=== PATIENT | male | born 1955 | race Caucasian/White ===

== ENCOUNTER 2016-12-08 07:46 | Day surgery (SDC) | payer OTHER ==
[2016-12-08] VITALS (8 sets, daily range): BP systolic 99–134; BP diastolic 55–63; PULSE 80–100; RESP 10–33; Ht 182.9 cm; Wt 92.0 kg
[~2016-12-08] VITALS: Ht 182.9 cm; Wt 92.0 kg
[~2016-12-08 07:46] MED LIST: ATOR20TA38 PO; BENA20TA48 PO; SERT-165 PO; SITA1TAB3 PO
[2016-12-08] MEDS ORDERED: LINA1TAB PO (08:20)
[2016-12-08] MEDS ORDERED: CANA300T PO (08:21)
[2016-12-08 08:44] LABS: BASOPHILS % 0.5 % (0.0-2.0); EOSINOPHILS # 0.2 10^3/ul (0.0-0.5); EOSINOPHILS % 1.6 % (0.0-7.0); HEMATOCRIT 46.2 % (42.0-52.0); HEMOGLOBIN 15.8 g/dl (14.0-18.0); LYMPHOCYTES # 1.2 10^3/ul (0.8-2.9); LYMPHOCYTES % 12.1 % (15.0-51.0); MEAN CORPUSCULAR HEMOGLOBIN 30.4 pg (29.0-33.0); MEAN CORPUSCULAR HGB CONC 34.2 g/dl (32.0-37.0); MEAN CORPUSCULAR VOLUME 89.1 fl (82.0-101.0); MEAN PLATELET VOLUME 7.5 fl (7.4-10.4); MONOCYTE # 0.5 10^3/ul (0.3-0.9); MONOCYTES % 5.6 % (0.0-11.0); NEUTROPHIL # 7.7 10^3/ul (1.6-7.5); NEUTROPHILS % 80.2 % (39.0-77.0); PLATELET COUNT 251 10^3/UL (140-440); RED BLOOD COUNT 5.18 10^6/ul (4.70-6.10); RED CELL DISTRIBUTION WIDTH 12.9 % (11.5-14.5); UNCORRECTED WBC 9.5 10^3/ul (4.8-10.8); WHITE BLOOD COUNT 9.5 10^3/ul (4.8-10.8)
[2016-12-08 08:47] LABS: INR 0.92; PROTIME 12.4 Sec (12.2-14.2)
[2016-12-08 08:48] LABS: PARTIAL THROMBOPLASTIN TIME 25.3 Sec (25.0-35.0)
[2016-12-08 08:50] LABS: CONDITION 1
[2016-12-08 09:15] LABS: CALCIUM 9.6 mg/dl (8.4-10.2); CREATININE 1.09 mg/dl (0.61-1.24)
[2016-12-08] MEDS ORDERED: HEPARIN 1000 UNITS/ML 10 ML INJ ONE (09:38)
[2016-12-08] MEDS ORDERED: IODIXANOL LOCM 100 ML BTL ONE (09:38)
[2016-12-08] MEDS ORDERED: MIDAZOLAM 1 MG/ML 2 ML INJ ONE (09:38)
[2016-12-08] MEDS ORDERED: LIDOCAINE 1% (MDV) 20 ML INJ ONE (09:38)
[2016-12-08] MEDS ORDERED: FENTAnyl 50 MCG/ML VIAL ONE (09:39)
[2016-12-08] MEDS ORDERED: NITROGLYCERIN (IC) 100 MCG/ML INJ ONE (09:39)
[2016-12-08] MEDS ORDERED: VERAPAMIL 5 MG INJ ONE (09:39)
--- NOTE | 2016-12-08 10:52 | OPR ---
Date/Time of Note Date/Time of Note DATE: 12/08/16 TIME: 10:48 Operative Report Free Text/Dictation Procedure Date: 12/08/2016 Procedures Performed: 1)Selective left and right coronary angiography. 2)Aortogram Pre-operative Diagnosis: Left atrial myxoma Post-operative Diagnosis:same Indications: 61 yo M with DM and newly discovered left atrial myxoma scheduled for cardiac cath for preop eval. Description of Procedure: After informed consent, the patient was brought to the cardiac catheterization lab. The procedure site was prepped and draped in usual manner. The patient was premedicated with versed 1mg and fentanyl 25 mcg. 2mL lidocaine was injected into the right wrist. Next using the posterior wall technique, the 6/ 5 cam[place] sheath was inserted into the right radial artery. Next using the JL3.5 and Tig 4.0, selective angiography of the left and right coronary arteries were obtained. The pigtail was then advanced into the ventricle and hemodynamics obtained. Left ventricle angiography was not obtained.Aortogram was performed. Next all equipment was removed and hemostasis was obtained by TR band. Findings: Anatomy/Hemodynamics: Left main:normal LAD:normal Diagonal:normal Circumflex:normal, dominant Obtuse marginal:normal LV angiography: not done Aortogram: no aortic regurgitation or aneurysm noted. No significant LV-Ao pullback gradient LVEDP: 8mmHg Contrast used: 100mL Assessment: Left atrial myxoma No CAD Plan: -f/u with Dr. Salas and CT surgeon SYLWIA DAVIS Dec 08, 2016 10:52
[2016-12-08] MEDS ORDERED: ONDANSETRON 4 MG INJ IV PRN (11:00)
[2016-12-08] MEDS ORDERED: ACETAMINOPHEN 325 MG TAB PO PRN (11:00)
[2016-12-08] MEDS ORDERED: morphine 2 MG INJ IV PRN (11:00)
== END 2016-12-08 12:58 | disposition home or self-care (01) ==
LOC: SDS 07:46
PROVIDERS: ATTEND Internal Medicine Interventional Cardiology
DX: D15.1 Benign neoplasm of heart (principal); E11.9 Type 2 diabetes mellitus without complications
CPT/HCPCS: 80048; 85025; 85610; 85730; 93458; C1769; C1887; J1644; J2250; J3010; Q9967